=== PATIENT | female | born 1945 | race Caucasian/White ===

== ENCOUNTER 2017-09-19 06:57 | Day surgery (SDC) | payer MEDICARE ==
[2017-09-18 08:58] LABS: ASPARTATE AMINO TRANSFERASE 14 U/L (15-37); BLOOD UREA NITROGEN 19 mg/dL (7-18)
[~2017-09-19] VITALS: Ht 166.4 cm; Wt 83.4 kg
[~2017-09-19 06:57] MED LIST: ACET325T14 PO; LOVA20TA2 PO; METO50TA82 PO; TRIA1CAP3 PO
[2017-09-19] MEDS ORDERED: BUPIVACAINE/PF 0.5% ONE (09:48)
[2017-09-19] MEDS ORDERED: EPINEPHRINE 1 MG/ML, 1ML ONE (09:48)
[2017-09-19] MEDS ORDERED: LIDOCAINE 1%, 20ML ONE (09:52)
[2017-09-19 09:55] VITALS: BP 159/76
[2017-09-19] MEDS ORDERED: LIDOCAINE 1%, 2ML ONE (10:11)
[2017-09-19] MEDS ORDERED: MIDAZOLAM 1 MG/ML, 2ML ONE (11:03)
[2017-09-19] MEDS ORDERED: DEXAMETHASONE 4 MG/ML, 1ML ONE (11:04)
[2017-09-19] MEDS ORDERED: ONDANSETRON 2MG/ML, 2ML ONE (11:04)
[2017-09-19] MEDS ORDERED: FENTANYL PF 100 MCG/2ML ONE ×2 (11:04)
[2017-09-19] MEDS ORDERED: PROPOFOL 10 MG/ML, 20ML ONE (11:04)
[2017-09-19] MEDS ORDERED: CEFAZOLIN 1,000 MG ONE (11:04)
[2017-09-19] MEDS ORDERED: ONDANSETRON 2MG/ML, 2ML IVPush PRN (11:30)
[2017-09-19] MEDS ORDERED: METOPROLOL 1 MG/ML, 5ML IV PRN (11:30)
[2017-09-19] MEDS ORDERED: HYDROmorphone 1 MG/ML, 1ML IV PRN (11:30)
[2017-09-19] MEDS ORDERED: ALBUTEROL SULFATE 2.5 MG/3 ML NPPB PRN (11:30)
[2017-09-19] MEDS ORDERED: ACETAMINOPHEN 325 MG TABLET PO PRN (11:30)
[2017-09-19] MEDS ORDERED: MIDAZOLAM 1 MG/ML, 2ML IV PRN (11:30)
[2017-09-19] MEDS ORDERED: DIAZEPAM 5 MG/ML, 2ML IVPush PRN (11:30)
[2017-09-19] MEDS ORDERED: FENTANYL PF 100 MCG/2ML IV PRN (11:30)
[2017-09-19] MEDS ORDERED: hydrALAzine 20 MG/ML, 1ML IV PRN (11:30)
[2017-09-19] MEDS ORDERED: MEPERIDINE/PF 25MG/0.5ML IVPush PRN (11:30)
[2017-09-19] MEDS ORDERED: LABETALOL 5MG/ML, 20ML IV PRN (11:30)
[2017-09-19] MEDS ORDERED: HYDROcodone/APAP 7.5-325MG/15ML UDC PO PRN (11:30)
[2017-09-19] MEDS ORDERED: PROMETHAZINE 25 MG/ML, 1ML IV PRN (11:30)
[2017-09-19] MEDS ORDERED: EPHEDRINE 50 MG/ML, 1ML IVPush PRN (11:30)
[2017-09-19] MEDS ORDERED: OXYcodone 5 MG/5 ML ORAL.SOL UDC PO PRN (11:30)
[2017-09-19] MEDS ORDERED: OXYcodone 5 MG/5 ML ORAL.SOL UDC ONE (11:33)
[2017-09-19] MEDS ORDERED: ACETAMINOPHEN 650 MG/20.3 ML UDC ONE (11:33)
== END 2017-09-19 14:15 ==
LOC: OUT 06:57
PROVIDERS: ATTEND Surgery
DX: D05.11 Intraductal carcinoma in situ of right breast (principal); I10 Essential (primary) hypertension; E78.5 Hyperlipidemia, unspecified; F32.9 Major depressive disorder, single episode, unspecified; Z87.39 Personal history of other diseases of the musculoskeletal system and connective tissue; Z88.1 Allergy status to other antibiotic agents; E66.9 Obesity, unspecified
CPT/HCPCS: 19125; 19281; 36415; 80053; 88307; 93005; C1729; J0171; J0690; J1100; J2250; J2405; J2704; J3010; J3490

== ENCOUNTER 2017-10-15 06:53 | Day surgery (SDC) | payer MEDICARE ==
[~2017-10-15] VITALS: Ht 166.4 cm; Wt 81.3 kg
[2017-10-15 07:51] VITALS: BP 147/85
[2017-10-15] MEDS ORDERED: LACTATED RINGERS 1,000 ML IV SCH (08:01)
[2017-10-15] MEDS ORDERED: AZIT250T PO (08:04)
[2017-10-15] MEDS ORDERED: LIDOCAINE/PRILOCAINE CRM W/TEG 5GM ONE (08:21)
[2017-10-15] MEDS ORDERED: LIDOCAINE 1%, 20ML ONE (09:40)
[2017-10-15] MEDS ORDERED: EPINEPHRINE 1 MG/ML, 1ML ONE (10:53)
[2017-10-15] MEDS ORDERED: BUPIVACAINE/PF 0.5% ONE (10:53)
[2017-10-15] MEDS ORDERED: ISOSULFAN BLUE 10 MG/ML, 5ML IV ONE (10:53)
[2017-10-15] MEDS ORDERED: MIDAZOLAM 1 MG/ML, 2ML ONE (11:00)
[2017-10-15] MEDS ORDERED: FENTANYL PF 100 MCG/2ML ONE (11:00)
[2017-10-15] MEDS ORDERED: CEFAZOLIN 1,000 MG ONE ×2 (11:21)
[2017-10-15] MEDS ORDERED: PROPOFOL 10 MG/ML, 20ML ONE (11:21)
[2017-10-15] MEDS ORDERED: DEXAMETHASONE 4 MG/ML, 1ML ONE ×2 (11:22)
[2017-10-15] MEDS ORDERED: ONDANSETRON 2MG/ML, 2ML ONE (11:22)
[2017-10-15] MEDS ORDERED: PROMETHAZINE 25 MG/ML, 1ML IV PRN (11:30)
[2017-10-15] MEDS ORDERED: OXYcodone 5 MG/5 ML ORAL.SOL UDC PO PRN (11:30)
[2017-10-15] MEDS ORDERED: ACETAMINOPHEN 325 MG TABLET PO PRN (11:30)
[2017-10-15] MEDS ORDERED: FENTANYL PF 100 MCG/2ML IV PRN (11:30)
[2017-10-15] MEDS ORDERED: OXYcodone 5 MG/5 ML ORAL.SOL UDC ONE (12:10)
[2017-10-15] MEDS ORDERED: ACETAMINOPHEN 650 MG/20.3 ML UDC ONE (12:10)
== END 2017-10-15 13:25 ==
LOC: OUT 06:53 → EDSTATUS 11:30 → OUT 13:25
PROVIDERS: ATTEND Surgery
DX: C50.911 Malignant neoplasm of unspecified site of right female breast (principal); I10 Essential (primary) hypertension; Z88.1 Allergy status to other antibiotic agents; Z88.8 Allergy status to other drugs, medicaments and biological substances
CPT/HCPCS: 38525; 38792; 88307; A9541; J0171; J0690; J1100; J2405; J2704; J3490; J2250; J3010

== ENCOUNTER 2018-01-25 07:34 | Emergency (ER) | payer MEDICARE ==
[~2018-01-25] VITALS: Ht 165.1 cm; Wt 84.1 kg
[~2018-01-25 07:34] MED LIST changes: +AZIT250T PO
[2018-01-25] MEDS ORDERED: SODIUM CHLORIDE 0.9% 1,000ML IVBOLUS ONE (08:00)
[2018-01-25 08:08] LABS: BASOPHILS # (AUTO) 0.03 x10^3/uL (0-0.1); BASOPHILS % (AUTO) 1 % (0-1); EOSINOPHILS # (AUTO) 0.02 x10^3/uL (0-0.4); EOSINOPHILS % (AUTO) 0 % (1-7); LYMPHOCYTES # (AUTO) 1.85 x10^3/uL (1-3.4); LYMPHOCYTES % (AUTO) 41 % (22-44); MD NO; MEAN CORPUSCULAR HGB CONC 34.7 g/dL (32.4-35.8); MEAN CORPUSCULAR VOLUME 86.5 fL (80-100); MEAN PLATELET VOLUME 8.6 fL (7.4-10.4); MONOCYTES # (AUTO) 0.32 x10^3/uL (0.2-0.8); MONOCYTES % (AUTO) 7 % (2-9); NEUTROPHILS # (AUTO) 2.32 x10^3/uL (1.8-6.8); NEUTROPHILS % (AUTO) 51 % (42-75); PLATELET COUNT 269 x10^3/uL (130-400); RED CELL DISTRIBUTION WIDTH 13.4 % (9.6-15.2)
[2018-01-25 08:21] LABS: ALBUMIN 3.7 g/dL (3.4-5.0); ANION GAP 11 mmol/L (5-15); CALCIUM 8.5 mg/dL (8.5-10.1); CHLORIDE 102 mmol/L (98-107)
[2018-01-25 08:26] LABS: ALANINE AMINOTRANSFERASE 59 U/L (12-78); ALKALINE PHOSPHATASE 90 U/L (45-117); BILIRUBIN,TOTAL 1.1 mg/dL (0.2-1.0); TOTAL PROTEIN 7.4 g/dL (6.4-8.2); TROPONIN I < 0.015 ng/mL (0.000-0.045)
[2018-01-25] MEDS ORDERED: BACITRACIN ZINC OINT 500U/GM, 0.9 GM ONE (08:42)
[2018-01-25 09:03] VITALS: BP 117/62
== END 2018-01-25 09:44 | disposition home or self-care (01) ==
LOC: ED 07:51
DX: R53.1 Weakness (principal); F41.1 Generalized anxiety disorder; C50.919 Malignant neoplasm of unspecified site of unspecified female breast; E05.00 Thyrotoxicosis with diffuse goiter without thyrotoxic crisis or storm; Z87.891 Personal history of nicotine dependence
CPT/HCPCS: 36415; 71045; 80053; 84484; 85025; 93005; 96360; 96361; 99285; J7030

== ENCOUNTER 2020-02-07 10:18 | Inpatient (IN) | payer MEDICARE ==
[~2020-02-07] VITALS: Ht 167.6 cm; Wt 76.1 kg
[2020-02-07] MEDS ORDERED: SODIUM CHLORIDE FLUSH 10ML SYR IVF ONE (11:00)
[2020-02-07] MEDS ORDERED: SODIUM CHLORIDE 0.9% 1,000ML IVBOLUS ONE (11:00)
[2020-02-07] MEDS ORDERED: ONDANSETRON 2MG/ML, 2ML IVPush ONE ×2 (11:00→13:00)
[2020-02-07] MEDS ORDERED: ONDANSETRON 2MG/ML, 2ML ONE ×2 (11:12→15:59)
[2020-02-07] MEDS ORDERED: MORPHINE SULFATE 4 MG/ML, 1ML ONE ×2 (11:12→12:25)
[2020-02-07] MEDS: MORPHINE SULFATE 4 MG/ML, 1ML IVPush PRN ×2 (11:26→12:30)
[2020-02-07 11:53] LABS: BASOPHILS # (AUTO) 0.05 x10^3/uL (0-0.1); BASOPHILS % (AUTO) 1 % (0-1); EOSINOPHILS % (AUTO) 0 % (1-7); LYMPHOCYTES # (AUTO) 1.29 x10^3/uL (1-3.4); LYMPHOCYTES % (AUTO) 14 % (22-44); MD NO; MEAN CORPUSCULAR HEMOGLOBIN 31.2 pg (27.0-34.8); MEAN CORPUSCULAR VOLUME 91.7 fL (80-100); MEAN PLATELET VOLUME 8.8 fL (7.4-10.4); MONOCYTES # (AUTO) 0.34 x10^3/uL (0.2-0.8); MONOCYTES % (AUTO) 4 % (2-9); NEUTROPHILS # (AUTO) 7.67 x10^3/uL (1.8-6.8); NEUTROPHILS % (AUTO) 82 % (42-75); PLATELET COUNT 252 x10^3/uL (130-400); RED BLOOD COUNT 5.09 x10^6/uL (3.82-5.3); RED CELL DISTRIBUTION WIDTH 12.8 % (9.6-15.2)
[2020-02-07 11:57] LABS: ALBUMIN 4.1 g/dL (3.4-5.0); ANION GAP 14 mmol/L (5-15); CALCIUM 9.5 mg/dL (8.5-10.1); CHLORIDE 105 mmol/L (98-107)
[2020-02-07 11:59] LABS: ALANINE AMINOTRANSFERASE 31 U/L (12-78)
[2020-02-07 12:01] LABS: ALKALINE PHOSPHATASE 70 U/L (45-117); BILIRUBIN,TOTAL 1.3 mg/dL (0.2-1.0); TOTAL PROTEIN 7.6 g/dL (6.4-8.2)
--- NOTE | 2020-02-07 12:30 | NUR ---
PT C/O ABD PAIN. PROVIDER NOTIFIED. PT ASSESSED. MEDICATED FOR PAIN.
--- NOTE | 2020-02-07 12:49 | NUR ---
pt son: nakia [phone] he can p/u pt if discharged
[2020-02-07] MEDS ORDERED: HYDROmorphone 2 MG/ML, 1ML IVPush PRN (13:00)
--- NOTE | 2020-02-07 13:32 | NUR ---
PT RESTING WITH EYES CLOSED AFTER SPRING CRATER. MONITOR IN PLACE.
[2020-02-07 13:42] LABS: TROPONIN I < 0.015 ng/mL (0.000-0.045)
--- NOTE | 2020-02-07 14:00 | NUR ---
PT RESTING COMFORTABLY WITH EYES CLOSED. O2 SAT 80-90%, PLACED ON 2 L NC.
--- NOTE | 2020-02-07 14:12 | NUR ---
CT GOT CLEARANCE TO GIVE IV CONTRAST;NOW WAITING FOR OPEN CT ROOM FOR RESP PATIENT
[2020-02-07] MEDS ORDERED: ACETAMINOPHEN 325 MG TABLET PO PRN (15:00)
[2020-02-07] MEDS ORDERED: hydrALAzine 20 MG/ML, 1ML IVPush PRN (15:00)
[2020-02-07] MEDS ORDERED: MORPHINE SULFATE 4 MG/ML, 1ML IVPush PRN (15:00)
[2020-02-07] MEDS: HEPARIN 5,000 UNITS/ML, 1ML SQ SCH ×2 (15:00→23:20)
[2020-02-07] MEDS ORDERED: ONDANSETRON ODT 4 MG PO PRN (15:00)
[2020-02-07] MEDS ORDERED: ONDANSETRON 2MG/ML, 2ML IVPush PRN (15:00)
[2020-02-07] MEDS ORDERED: HYDROcodone/APAP 5/325 TABLET PO PRN (15:00)
--- NOTE | 2020-02-07 15:07 | NUR ---
PT TO CT. NO COMPLAINTS OF PAIN. HOSPTIAL BED ORDERED.
[2020-02-07] MEDS ORDERED: OMNIPAQUE 350 MG/ML, 100ML BOTTLE ONE (15:35)
[2020-02-07 16:29] LABS: MICROSCOPIC NOT IND
[2020-02-07 16:35] LABS: CULTURE INDICATED? NO
[2020-02-07] MEDS: NS + 20MEQ KCL 1,000 ML IV SCH (16:45)
--- NOTE | 2020-02-07 19:31 | NUR ---
PT HAS BEEN RESTING COMFORTABLY. MONITOR IN PLACE. AWAITING RM ON MEDICAL FLOOR.
[2020-02-07 21:20] VITALS: BP 137/65
[2020-02-07] MEDS: METOPROLOL TARTRATE 50 MG TAB PO SCH (23:20)
[2020-02-08 01:34] VITALS: BP 143/65
[2020-02-08] MEDS: NS + 20MEQ KCL 1,000 ML IV SCH ×2 (02:00→14:51)
[2020-02-08 05:31] VITALS: BP 137/65
[2020-02-08] MEDS: HEPARIN 5,000 UNITS/ML, 1ML SQ SCH ×3 (06:30→21:42)
[2020-02-08 06:46] LABS: ALANINE AMINOTRANSFERASE 39 U/L (12-78); ALBUMIN 2.9 g/dL (3.4-5.0); ANION GAP 6 mmol/L (5-15); BASOPHILS # (AUTO) 0.02 x10^3/uL (0-0.1); BASOPHILS % (AUTO) 0 % (0-1); CALCIUM 8.1 mg/dL (8.5-10.1); CHLORIDE 114 mmol/L (98-107); CREATININE 1.09 mg/dL (0.55-1.02); EOSINOPHILS # (AUTO) 0.04 x10^3/uL (0-0.4); EOSINOPHILS % (AUTO) 1 % (1-7); LYMPHOCYTES # (AUTO) 1.84 x10^3/uL (1-3.4); LYMPHOCYTES % (AUTO) 28 % (22-44); MD NO; MEAN CORPUSCULAR HEMOGLOBIN 31.3 pg (27.0-34.8); MEAN CORPUSCULAR HGB CONC 33.9 g/dL (32.4-35.8); MEAN CORPUSCULAR VOLUME 92.2 fL (80-100); MEAN PLATELET VOLUME 8.8 fL (7.4-10.4); MONOCYTES # (AUTO) 0.41 x10^3/uL (0.2-0.8); MONOCYTES % (AUTO) 6 % (2-9); NEUTROPHILS # (AUTO) 4.27 x10^3/uL (1.8-6.8); NEUTROPHILS % (AUTO) 65 % (42-75); PLATELET COUNT 201 x10^3/uL (130-400); RED BLOOD COUNT 4.16 x10^6/uL (3.82-5.3); RED CELL DISTRIBUTION WIDTH 13.3 % (9.6-15.2)
[2020-02-08 06:48] LABS: ALKALINE PHOSPHATASE 65 U/L (45-117); BILIRUBIN,TOTAL 1.2 mg/dL (0.2-1.0); TOTAL PROTEIN 5.9 g/dL (6.4-8.2)
[2020-02-08 06:50] VITALS: BP 131/60
[2020-02-08] MEDS: METOPROLOL TARTRATE 50 MG TAB PO SCH ×2 (09:37→21:42)
[2020-02-08 11:12] LABS: CLOSTRIDIUM DIFFICILE ANTIGEN NEGATIVE; CLOSTRIDIUM DIFFICILE TOXIN NEGATIVE (Negative)
[2020-02-08 12:41] VITALS: BP 134/76
[2020-02-08] MEDS ORDERED: LOVASTATIN 20 MG TABLET PO SCH (21:00)
[2020-02-08 21:06] VITALS: BP 126/76
[2020-02-09 02:53] VITALS: BP 114/69
[2020-02-09] MEDS: HEPARIN 5,000 UNITS/ML, 1ML SQ SCH (07:00)
[2020-02-09 08:02] VITALS: BP 136/98
[2020-02-09] MEDS: METOPROLOL TARTRATE 50 MG TAB PO SCH (08:09)
[2020-02-09] MEDS ORDERED: TRIAMTERENE-HCTZ 37.5/25 MG TABLET PO SCH (09:00)
[2020-02-09 13:58] VITALS: BP 134/73
[2020-02-10] MEDS ORDERED: TAMO20TA PO (10:46)
== END 2020-02-09 15:25 | disposition home or self-care (01) | DRG 391 ==
LOC: ED 10:59 → EDIP 13:01 → 3WST 21:28 → 3E 02-08 11:03 → 4NE 02-08 20:31
PROVIDERS: ADMIT Hospitalist; ATTEND Hospitalist
DX: A08.4 Viral intestinal infection, unspecified (principal); N17.0 Acute kidney failure with tubular necrosis; E87.2 Acidosis; E87.6 Hypokalemia; E05.00 Thyrotoxicosis with diffuse goiter without thyrotoxic crisis or storm; E78.5 Hyperlipidemia, unspecified; I10 Essential (primary) hypertension; Z85.3 Personal history of malignant neoplasm of breast; Z87.891 Personal history of nicotine dependence; Z90.710 Acquired absence of both cervix and uterus; Z03.818 Encounter for observation for suspected exposure to other biological agents ruled out; Z88.2 Allergy status to sulfonamides
CPT/HCPCS: 36415; 71045; 74177; 80053; 81003; 83605; 83735; 84100; 84484; 85025; 87040; 87324; 89055; 93005; 96374; 96375; 96376; G0378; J1644; J2405; J3480; Q9967; J2270; J7030

== ENCOUNTER 2020-02-10 10:32 | Observation (INO) | payer MEDICARE ==
[~2020-02-10] VITALS: Ht 165.1 cm; Wt 80.0 kg
[2020-02-10] MEDS ORDERED: TAMO20TA PO (10:46)
--- NOTE | 2020-02-10 10:53 | NUR ---
PT BIB [facility] FOR NAUSEA AND WEAKNESS WITH BEING DISCHARGED YESTERDAY FOR N/V AND WEAKNESS. PT HAS HX OF ANXIETY AND PRESENTS TODAY WITH CRYING. PT REPORTS WHEN SHE LEFT YESTERDAY SHE "FELT GREAT." BS WAS 132. PT GIVEN ZOFRAN BY [facility] AND SHE REPORTS THAT IS BETTER. DR. GREWAL AT BEDSIDE.
--- NOTE | 2020-02-10 10:57 | NUR ---
PT GIVEN CALL LIGHT AND WARM BLANKET.
[2020-02-10] MEDS ORDERED: SODIUM CHLORIDE 0.9% 1,000ML IVBOLUS ONE (11:00)
[2020-02-10 11:35] LABS: BASOPHILS # (AUTO) 0.03 x10^3/uL (0-0.1); BASOPHILS % (AUTO) 1 % (0-1); EOSINOPHILS # (AUTO) 0.03 x10^3/uL (0-0.4); EOSINOPHILS % (AUTO) 1 % (1-7); LYMPHOCYTES # (AUTO) 1.51 x10^3/uL (1-3.4); LYMPHOCYTES % (AUTO) 23 % (22-44); MD NO; MEAN CORPUSCULAR HEMOGLOBIN 31.2 pg (27.0-34.8); MEAN CORPUSCULAR VOLUME 91.6 fL (80-100); MEAN PLATELET VOLUME 8.6 fL (7.4-10.4); MONOCYTES # (AUTO) 0.32 x10^3/uL (0.2-0.8); MONOCYTES % (AUTO) 5 % (2-9); NEUTROPHILS # (AUTO) 4.78 x10^3/uL (1.8-6.8); NEUTROPHILS % (AUTO) 72 % (42-75); PLATELET COUNT 228 x10^3/uL (130-400); RED BLOOD COUNT 4.71 x10^6/uL (3.82-5.3); RED CELL DISTRIBUTION WIDTH 12.9 % (9.6-15.2)
[2020-02-10 11:41] LABS: ALANINE AMINOTRANSFERASE 33 U/L (12-78); ALBUMIN 3.6 g/dL (3.4-5.0); ANION GAP 10 mmol/L (5-15); CALCIUM 9.1 mg/dL (8.5-10.1); CHLORIDE 111 mmol/L (98-107); CREATININE 1.24 mg/dL (0.55-1.02)
[2020-02-10 11:46] LABS: ALKALINE PHOSPHATASE 69 U/L (45-117); BILIRUBIN,TOTAL 0.9 mg/dL (0.2-1.0); TOTAL PROTEIN 7.2 g/dL (6.4-8.2); TROPONIN I < 0.015 ng/mL (0.000-0.045)
[2020-02-10] MEDS ORDERED: hydrALAzine 20 MG/ML, 1ML IVPush PRN (13:00)
[2020-02-10] MEDS ORDERED: LORazepam 2 MG/ML, 1ML IVPush ONE (13:00)
[2020-02-10] MEDS ORDERED: LORazepam 2 MG/ML, 1ML ONE (13:00)
[2020-02-10] MEDS ORDERED: OXYcodone/APAP 5/325MG TABLET PO PRN (13:00)
[2020-02-10] MEDS ORDERED: ACETAMINOPHEN 325 MG TABLET PO PRN (13:00)
--- NOTE | 2020-02-10 13:05 | NUR ---
REPORT FROM LILI DENNY.
[2020-02-10] MEDS ORDERED: POTASSIUM CHLORIDE 20 MEQ TAB.ER.PRT PO ONE (13:30)
--- NOTE | 2020-02-10 13:38 | NUR ---
PT RESTING COMFORTABELY IN [facility]. NAD NOTED AT THIS TIME. AWAITING ROOM ASSIGNMENT.
--- NOTE | 2020-02-10 13:49 | NUR ---
Attempted to call report. Unable to contact nurse.
--- NOTE | 2020-02-10 13:55 | NUR ---
Report to LILI Loco.
[2020-02-10 14:45] VITALS: BP 135/81
[2020-02-10] MEDS: SODIUM CHLORIDE 0.9% 1,000 ML IV SCH ×2 (15:49→23:48)
[2020-02-10] MEDS: ENOXAPARIN 40 MG/0.4 ML SQ SCH (15:50)
[2020-02-10 18:01] LABS: MICROSCOPIC NOT IND
[2020-02-10 18:07] LABS: CULTURE INDICATED? NO
[2020-02-10 19:36] VITALS: BP 123/75
[2020-02-10] MEDS: METOPROLOL TARTRATE 50 MG TAB PO SCH (20:47)
[2020-02-10] MEDS ORDERED: LOVASTATIN 20 MG TABLET PO SCH (21:00)
[2020-02-11 00:28] VITALS: BP 122/75
[2020-02-11 05:18] LABS: ANION GAP 6 mmol/L (5-15); CALCIUM 8.1 mg/dL (8.5-10.1); CHLORIDE 116 mmol/L (98-107); CREATININE 0.99 mg/dL (0.55-1.02)
[2020-02-11 05:20] LABS: BASOPHILS # (AUTO) 0.03 x10^3/uL (0-0.1); BASOPHILS % (AUTO) 1 % (0-1); EOSINOPHILS # (AUTO) 0.05 x10^3/uL (0-0.4); EOSINOPHILS % (AUTO) 1 % (1-7); LYMPHOCYTES # (AUTO) 1.67 x10^3/uL (1-3.4); LYMPHOCYTES % (AUTO) 36 % (22-44); MD NO; MEAN CORPUSCULAR HEMOGLOBIN 31.4 pg (27.0-34.8); MEAN CORPUSCULAR HGB CONC 33.9 g/dL (32.4-35.8); MEAN CORPUSCULAR VOLUME 92.5 fL (80-100); MONOCYTES # (AUTO) 0.34 x10^3/uL (0.2-0.8); MONOCYTES % (AUTO) 7 % (2-9); NEUTROPHILS # (AUTO) 2.55 x10^3/uL (1.8-6.8); NEUTROPHILS % (AUTO) 55 % (42-75); PLATELET COUNT 183 x10^3/uL (130-400); RED BLOOD COUNT 3.78 x10^6/uL (3.82-5.3); RED CELL DISTRIBUTION WIDTH 13.3 % (9.6-15.2)
[2020-02-11 07:38] VITALS: BP 133/84
[2020-02-11] MEDS: METOPROLOL TARTRATE 50 MG TAB PO SCH (08:47)
[2020-02-11] MEDS: SODIUM CHLORIDE 0.9% 1,000 ML IV SCH (08:47)
[2020-02-11] MEDS ORDERED: TAMOXIFEN 20 MG PO SCH (09:00)
[2020-02-11] MEDS: ENOXAPARIN 40 MG/0.4 ML SQ SCH (13:00)
[2020-02-11 13:38] VITALS: BP 146/78
== END 2020-02-11 16:39 | disposition home or self-care (01) ==
LOC: ED 10:40 → INTOOBSV 12:51 → EDIP 12:51 → 3N 14:50
PROVIDERS: ADMIT Internal Medicine Infectious Disease; ATTEND Internal Medicine Infectious Disease
DX: R53.1 Weakness (principal); A08.4 Viral intestinal infection, unspecified; E87.6 Hypokalemia; N17.9 Acute kidney failure, unspecified; I10 Essential (primary) hypertension; E78.5 Hyperlipidemia, unspecified; F41.1 Generalized anxiety disorder; C50.919 Malignant neoplasm of unspecified site of unspecified female breast; Z87.891 Personal history of nicotine dependence; R11.2 Nausea with vomiting, unspecified
CPT/HCPCS: 36415; 71045; 80048; 80053; 81003; 83690; 84484; 85025; 93005; 96361; 96372; 96374; 97163; 99285; G0378; J1650; J2060; J7030